=== PATIENT | male | born 1960 | race African-American/Black ===

== ENCOUNTER 2020-02-20 19:40 | Inpatient (IN) | payer OTHER ==
[~2020-02-20] VITALS: Ht 190.5 cm; Wt 113.8 kg
[2020-02-20 19:53] VITALS: BP 180/84
[2020-02-20 20:21] LABS: BE(vivo) 0.3 mmol/L (-2 to +3); HCO3 23.4 mmol/L (22.0-26.0); PCO2 32.3 mmHg (35.0-45.0); pH 7.478 (7.360-7.450); sO2 82.5 % (92.0-98.0)
[2020-02-20 20:23] LABS: PO2 42.7 mmHg (80.0-100.0)
[2020-02-20 20:48] LABS: ABSOLUTE NEUTROPHILS 6.6 thou/uL (1.4-8.2); BASOPHILS 0.6 % (0.0-2.0); EOSINOPHILS 0.5 % (0.0-3.0); HEMATOCRIT 28.7 % (42.0-52.0); HEMOGLOBIN 9.6 gm/dL (14.0-18.0); LYMPHOCYTES 8.4 % (24.0-44.0); MCH 29.2 pg (26.0-34.0); MCHC 33.5 g/dL (28.0-37.0); MCV 87.3 fL (80.0-100.0); MONOCYTES 6.1 % (1.0-8.0); PLATELET COUNT 102 thou/uL (150-400); POLYS 84.4 % (36.0-66.0); RBC 3.28 mil/uL (4.50-6.00); RDW 14.2 % (10.5-14.5); WBC 7.8 thou/uL (4.0-11.0)
[2020-02-20 20:53] LABS: ALBUMIN 2.9 g/dL (3.4-5.0); ANION GAP 11 mmol/L (7-16); BUN 54 mg/dL (7-18); CALCIUM 8.4 mg/dL (8.5-10.1); CHLORIDE 101 mmol/L (98-107); CO2 25 mmol/L (21-32); CREATININE 10.4 mg/dL (0.7-1.3); GLUCOSE 124 mg/dL (74-106); MAGNESIUM 2.1 mg/dL (1.8-2.4); SGOT 20 U/L (15-37); SGPT 9 U/L (30-65); SODIUM 137 mmol/L (136-145); TOTAL BILIRUBIN 0.8 mg/dL (0.2-1.0); TROPONIN-I <0.06 ng/mL (<0.06)
[2020-02-21] VITALS (7 sets, daily range): BP systolic 138–195; BP diastolic 73–99
[2020-02-21] MEDS ORDERED: ACETAMINOPHEN650 M5 PO (01:11)
[2020-02-21] MEDS ORDERED: ASA81BEC PO (01:12)
[2020-02-21] MEDS ORDERED: NORVASC 2.5 MG2.5 M1 PO (01:12)
[2020-02-21] MEDS ORDERED: CALCITRIOL0.5 MCG PO (01:14)
[2020-02-21] MEDS ORDERED: DULCOLAX STOOL100 M1 PO (01:14)
[2020-02-21] MEDS ORDERED: LANTUS SUBQ (01:15)
[2020-02-21] MEDS ORDERED: HYDRALAZINE 2525 MG PO (01:15)
[2020-02-21] MEDS ORDERED: HUMALOG100 UNIT/1 SUBQ (01:16)
[2020-02-21] MEDS ORDERED: PROBIOTIC1 EAC5 PO (01:17)
[2020-02-21] MEDS ORDERED: MELATONIN3 M1 PO (01:18)
[2020-02-21] MEDS ORDERED: LYRICA150 MG PO (01:18)
[2020-02-21] MEDS ORDERED: METOPROLOL SUCC50 MG PO (01:19)
[2020-02-21] MEDS ORDERED: NORCO 10-325 T1 EACH PO (01:21)
[2020-02-21] MEDS ORDERED: PROTONIX40 M1 PO (01:21)
[2020-02-21] MEDS ORDERED: NF PO (01:21)
[2020-02-21] MEDS ORDERED: RENVELA0.8 GM PO (01:22)
[2020-02-21] MEDS ORDERED: PYRIDOXINE HCL25 MG PO (01:22)
[2020-02-21] MEDS ORDERED: B-1100 MG PO (01:23)
[2020-02-21] MEDS ORDERED: SENOKOTXTRA17.2 MG PO (01:23)
[2020-02-21] MEDS ORDERED: VELTASSA16.8 GM PO (01:24)
[2020-02-21 05:37] LABS: ABSOLUTE NEUTROPHILS 9.8 thou/uL (1.4-8.2); BASOPHILS 0.2 % (0.0-2.0); HEMATOCRIT 29.3 % (42.0-52.0); HEMOGLOBIN 9.7 gm/dL (14.0-18.0); LYMPHOCYTES 4.7 % (24.0-44.0); MCH 29.4 pg (26.0-34.0); MONOCYTES 1.5 % (1.0-8.0); PLATELET COUNT 88 thou/uL (150-400); POLYS 93.6 % (36.0-66.0); RDW 14.7 % (10.5-14.5); WBC 11.2 thou/uL (4.0-11.0)
[2020-02-21 05:46] LABS: CALCIUM 8.5 mg/dL (8.5-10.1); CREATININE 11.1 mg/dL (0.7-1.3); MAGNESIUM 2.2 mg/dL (1.8-2.4)
[2020-02-21 06:11] LABS: POTASSIUM 7.7 mmol/L (3.5-5.1)
--- NOTE | 2020-02-21 07:36 | NUR ---
ADMIITED FROM ER UNDER 'S CARE. ADMITTED WITH HYPOXIA,COVID 19 R/O. REC COMPLETED AND SOME HOME MEDS RESTARTED. CRITICAL K REPORTED TO DR.AL LÓPEZ AND MAVIS ABEBE. NEW ORDERS RECIEVED AND CARRIED OUT. HYPERTENSION MANAGED PER MD ORDER. PT WILL BE HAVING HD PER . INITIAL WOUND CARE TO L BKA STUMP OPEN SORE RENDERED AT BEDSIDE AND PICTURE TAKEN. OLD WOUND VAC DRESSING TAKEN DOWN AND WET TO DRY DRESSING APPLIED PER POLICY. TOLERATED WELL. OPTIFLO IS MANAGED PER RT WITH FREQUENT OBSERVATION. NO S/S ACUTE DISTRESS NOTED OR REPORTED AT THIS TIME. CARE TRANSFERRED TO AM RN AT THIS TIME
--- NOTE | 2020-02-21 08:25 | EKG ---
[facility] [place] [address] ELECTROCARDIOGRAM REPORT Name: DAVEY NASH Room #: 362-P ADM IN M.R.#: [id number] Admission: 02/20/20 Attend Phys: Reyes Laughlin MD Discharge: Date of : 64 Report #: [id number] THIS REPORT FOR: cc: FAM - No family physician/PCP FAM - No family physician/PCP Sanket Mukherjee MD [facility] THIS REPORT FOR: //name// [facility] ED Test Date: 2020-02-20 Test Time: 20:01:42 Pat Name: DAVEY NASH Department: Room: 362 Gender: M Table Hand: SELWYN : 1960 Requested By: Francesco Sheffield Order Number: [id number] MD: Sanket Mukherjee Measurements Intervals [place] Rate: 86 P: 29 UT: 207 QRS: 21 QRSD: 94 T: 11 QT: 353 QTc: 423 Interpretive Statements Sinus rhythm Borderline prolonged UT interval No previous ECG available for comparison Electronically Signed On 02-21-2020 8:25:03 CDT by Sanket Mukherjee [email or web address] <ELECTRONICALLY SIGNED> By: Sanket Mukherjee MD, FAC 02/21/2025 00 00 Sanket Mukherjee MD, [facility] /EPI
[2020-02-21 11:03] LABS: BE(vivo) 1.3 mmol/L (-2 to +3); PCO2 35.4 mmHg (35.0-45.0); PO2 112.1 mmHg (80.0-100.0); pH 7.466 (7.360-7.450); sO2 98.4 % (92.0-98.0)
--- NOTE | 2020-02-21 18:44 | NUR ---
patient covid pcr resulted negative this evening. called renee lynne, and MAKAYLA stewart RN to make aware. no orders to d/c isolation as of now. awaiting orders. report given to oncedi SWAN
--- NOTE | 2020-02-21 18:55 | NUR ---
assumed patient care this am at approximately 0700. patient is awake and alert, pleasant, meds and assessment as charted. o2 sat stable on optiflow NC. no s/s of resp distress noted this shift. patient had dialysis today, removed 2L. tolerated well. dressing change completed as ordered. patient complaining of pain to left leg. states norco not effective in pain relief and one dose of fentanyl given, states helped pain more but not completely relieved. tolerating food, having regular BMs.
[2020-02-22 05:34] VITALS: BP 168/83
[2020-02-22 07:33] VITALS: BP 138/47
[2020-02-22 12:20] VITALS: BP 154/37
--- NOTE | 2020-02-22 14:06 | NUR ---
INITIAL ASSESSMENT: MARIA EUGENIA reviewed chart and spoke with nursing and attending physician. Pt was admitted from [facility] due to ESRD. Pt placed in Enhanced Isolation to r/o COVID-19. Pt's first test was negative. Second test is pending. Pt with hx of left BKA and is a dialysis pt. MARIA EUGENIA spoke with pt via phone. Introduced role of SW. Pt is alert/orientated. Pt reports he has been at [facility] for about two weeks for skilled therapy. Pt has a walker and w/c. Pt goes to dialysis T-R-S at the [facility] dialysis clinic. Pt's PCP is Dr. Ag Marques at [facility]. Pt states that his plan is to return to [facility] for therapy. SW faxed clinical info to [facility] for review. Requested therapy evals. MARIA EUGENIA spoke with Carlene at [facility] to provide update. Carlene states that as long as pt remains COVID negative, they will be able to accept pt back to [facility]. MARIA EUGENIA is following to assist as needed with discharge planning.
[2020-02-22 17:08] VITALS: BP 132/46
--- NOTE | 2020-02-22 18:29 | NUR ---
assumed care of pt at 0700. pt aox3-4 in no acute distress. off optiflo - now on 5l nc. reports that fentanyl not effecctive - relayed msg to physician. appears comfortable. dressing changed per order. iv abx infusing per order. clals out appropriately. scheduled for dialysis tomorrow. vitals stable. good progress toward poc goals. wcm.
[2020-02-22 20:43] VITALS: BP 161/55
[2020-02-23 02:19] LABS: URINE BILIRUBIN NEGATIVE (Negative); URINE BLOOD 3+ (Negative); URINE CLARITY CLOUDY; URINE COLOR BROWN; URINE GLUCOSE-RANDOM* NEGATIVE (Negative); URINE KETONES NEGATIVE (Negative); URINE NITRITE-REFLEX NEGATIVE (Negative); URINE PROTEIN (DIPSTICK) 2+ (Negative); URINE UROBILINOGEN 0.2 E.U./dl (0.2-1.0)
[2020-02-23 02:30] LABS: URINE LEUKOCYTES-REFLEX 3+ (Negative)
[2020-02-23 02:42] LABS: SQUAMOUS 0-3 Few /LPF (0-3); URINE RBC >20 Many /HPF (0-2); URINE WBC-REFLEX >25 Many /HPF (0-5)
[2020-02-23 02:43] LABS: BACTERIA-REFLEX >30 Many /HPF (None Seen); CASTS None Seen /LPF (None Seen); CRYSTALS None Seen /LPF (None Seen); MUCUS 0-3 Light strn/LPF (None Seen); YEAST-REFLEX Present (None Seen)
--- NOTE | 2020-02-23 05:06 | NUR ---
PT IS COOPERATIVE AND PLEASANT. HE REMAINS ON OXYGEN, USING THE IV PAIN MEDICATION TO CONTROL PAIN TO LOWER EXTREMITIES. NO DISCHARGE CONCENS VOICED.
[2020-02-23 05:25] VITALS: BP 151/78
[2020-02-23 07:49] VITALS: BP 172/90
[2020-02-23 07:57] LABS: HEMATOCRIT 26.2 % (42.0-52.0); HEMOGLOBIN 8.5 gm/dL (14.0-18.0); MCH 28.9 pg (26.0-34.0); MCHC 32.6 g/dL (28.0-37.0); MCV 88.7 fL (80.0-100.0); RBC 2.95 mil/uL (4.50-6.00); RDW 14.3 % (10.5-14.5); WBC 3.6 thou/uL (4.0-11.0)
[2020-02-23 07:58] LABS: CALCIUM 8.1 mg/dL (8.5-10.1)
[2020-02-23 08:07] LABS: CREATININE 7.2 mg/dL (0.7-1.3)
[2020-02-23 12:29] VITALS: BP 164/81
--- NOTE | 2020-02-23 13:24 | NUR ---
Nutrition: Received call from kitchen staff. Pt requesting second lunch tray. He is on a renal diet. RD reviewed pt's chart. Pt w/ ESRD, on dialysis, also noted to have a nonhealing L BKA incisional wound per provider notes. Based on heightened protein needs for wound/protein losses from dialysis, allowed second protein entree to be sent with vegetables. Avoided allowing any additional carbs as pt also w/ hx of DM and provider note indicating goal to control diabetes, plus BGs currently elevated in the upper 200s lately. Pt is eating 100% of all meals recorded thus far. Anticipate low nutrition risk given excellent appetite and increased protein interest.
--- NOTE | 2020-02-23 15:52 | HC ---
[facility] [place] [address] CONSULTATION Name: DAVEY NASH Room #: 362-P ADM IN M.R.#: [id number] Admission: 02/20/20 Attend Phys: Reyes Laughlin MD Discharge: Date of : 64 Report #: [id number] THIS REPORT FOR: cc: MARGARETH - Brianna family physician/PCP MARGARETH - No family physician/PCP Jesse Roberts MD ~ CC: [facility] physician/PCP Reyes Laughlin DATE OF SERVICE: 02/21/2020 CHIEF COMPLAINT: Surgical wound following left below-knee amputation. HISTORY OF PRESENT ILLNESS: This is a 59-year-old male patient with a history of end-stage renal disease, who has undergone the left below-knee amputation by Dr. Reyna in 08/2019. He has had subsequent breakdown and has had a debridement. He is admitted with possible COVID-19 and I have been asked to see him with regard to wound care. The patient has some pain in his left leg. He has been managed with a wound VAC until recently. PAST MEDICAL HISTORY: Positive for end-stage renal disease, requiring dialysis; hypertension, type 2 diabetes and the left below-knee amputation. ALLERGIES: LISINOPRIL. MEDICATIONS: Amlodipine, aspirin, Zithromax, fentanyl, glucagon, heparin, insulin, Solu-Medrol, pantoprazole, Zosyn, vancomycin. REVIEW OF SYSTEMS: CONSTITUTIONAL: The patient denies fever, chills or weight loss. NEUROLOGICAL: The patient denies focal weakness, numbness or tingling. EYES: The patient denies visual changes, redness or drainage. ENT: The patient denies earache, nasal drainage or sore throat. CARDIOVASCULAR: The patient denies chest pain, palpitations or diaphoresis. PULMONARY: The patient does complain of shortness of breath and some cough. GASTROINTESTINAL: The patient denies nausea, vomiting, diarrhea or abdominal pain. ORTHOPEDIC: The patient has the left below-knee amputation with an open incision line. Other systems in a 14-point review of systems are negative. PHYSICAL EXAMINATION: VITAL SIGNS: Include temperature of 38.1, pulse ____, respiratory rate of 38, blood pressure 180/84. GENERAL: This is a somewhat chronically ill-appearing male patient who appears to be in mild discomfort. [address] [address] CONSULTATION Name: DAVEY NASH Room #: 362-P [facility] IN M.R.#: [id number] Admission: 02/20/20 Attend Phys: Reyes Laughlin MD Discharge: Date of : 64 Report #: [id number] HEENT: Head normocephalic. Nose and throat clear. NECK: Supple. LUNGS: Diminished. HEART: Regular rhythm. ABDOMEN: Soft, bowel sounds present. EXTREMITIES: Lower extremities demonstrate left below-knee amputation. The incision line is open. The base is relatively clean, healthy and granulating. It does not appear to be overtly infected at this time. LABORATORY STUDIES: Sodium 137, potassium 7.0, chloride 101, CO2 of 25, BUN 54, creatinine 10.4, glucose 124. Troponin is less than 0.06. BNP is 20,466. Albumin is 2.9. White blood cell count 7.8 with a hemoglobin of 9.6. CLINICAL IMPRESSION: 1. Left below-knee amputation, status post dehiscence and debridement. 2. End-stage renal disease, requiring hemodialysis. 3. Type 2 diabetes mellitus. 4. Hypertension. 5. Acute hypoxic respiratory failure, suspected COVID-19. RECOMMENDATIONS: At this point in time, we will recommend a topical quarter strength Dakin's moist gauze solution to be applied b.i.d. for now. I think once he is stable otherwise, we could potentially resume his wound VAC with continuation of his home medications and aggressive management of his respiratory failure would be appropriate. He will need ongoing nutritional support. All questions have been answered. I appreciate having been asked to see him in consultation. <ELECTRONICALLY SIGNED> By: Jesse Roberts MD 02/23/20 1552 [id number] 1120 Jesse Roberts MD /nt
[2020-02-23 15:55] VITALS: BP 154/52
--- NOTE | 2020-02-23 16:18 | NUR ---
SW reviewed chart and spoke with nursing and attending physician. Pt remains in Enhanced Isolation to r/o COVID-19. Pt's test is negative. Pt may transfer off of 3W when a bed is available. Pt having dialysis today. Therapy ordered to evaluate pt. SW provided updated to [facility] post acute liaison. Plan is for pt to return to [facility] when medically stable. Per attending, no weekend discharge anticipated. MARIA EUGENIA is following to assist as needed with discharge planning.
[2020-02-23 20:26] VITALS: BP 169/86
[2020-02-24 00:10] VITALS: BP 165/68
[2020-02-24 04:26] VITALS: BP 179/80
--- NOTE | 2020-02-24 05:50 | NUR ---
PT ALERT AND ORIENTED. DENIES CHEST PAIN, REPORTS SOB BUT STATES FEELING BETTER THAT WHAT HE PREVIOUSLY FELT. DENIES NAUSEA OR VOMITING. SR ON THE MONITOR. PT IS ANURIC. LEFT BKA STAMP PAIN ALLEVIATED WITH PRN FENTANYL. DENIES ANY OTHER CONCERNS. WILL CONTINUE TO MONITOR AND FOLLOW POC.
[2020-02-24 08:33] VITALS: BP 190/59
--- NOTE | 2020-02-24 12:45 | NUR ---
CHANGED OUT LINENS NOW, UP TO CHAIR. PT. TRANFERRED EARLIER VERY WELL WITH WALKER AND SELF PIVOTING. PT. GIVEN FENTANYL FOR LIMB. DRESSING CHANGE DISCOMFORT PRIOR, RESPONDED WELL TO SUCH. WOUND VAC IS BEING ARANGED FOR HIS STUMP BY BIOPHYSICS PROFESSOR AND ER FACILITY. WATCHING TV AND CALL LIGHT WITHIN REACH.
--- NOTE | 2020-02-24 15:08 | NUR ---
MARIA EUGENIA reviewed chart and spoke with nursing and attending physician. Pt was transferred to from 3W and is progressing towards goals for discharge. Pt may be ready for discharge back to [facility] over the weekend. MARIA EUGENIA discussed HBO treatments with wound care physicians. Pt would need to come to [facility] for outpt HBO treatments Thu-Thu. MARIA EUGENIA discussed with [facility] post-acute liaison who states they will follow up with [facility] on Thursday, due to the business office mgr being out of the office. [facility] will need to find out the cost of each visit. MARIA EUGENIA updated wound care physician. MARIA EUGENIA met with pt at bedside to discuss discharge plan. Pt is agreeable with returning to [facility]. [facility] is able to accept pt back over the weekend. Finalized discharge orders/summary will need to be faxed to [facility]. [facility] liaison will coordinate discharge. Chart copy needed. Nursing to call report. MARIA EUGENIA is available to assist as needed with discharge planning. [facility]-- Liaison (Brittany): [phone]
--- NOTE | 2020-02-24 16:25 | NUR ---
PT. WATCHING TV, DENIES ANY DISCOMFORT AT THIS TIME. IV FLUSHED UPPER RIGHT ARM BICEP. PENDING TRANSFER OVER THE WEEKEND, NOT TODAY. ASKED FOR DOUBLE PORTIONS BUT EXPLAINED TO HIM THAT BEING ON A RENAL DIET THEY CANNOT PROVIDE SUCH AT THIS TIME. CRACKERS GIVEN AND YOUGART.
[2020-02-24 17:49] VITALS: BP 149/46
[2020-02-24 19:20] VITALS: BP 148/65
[2020-02-25] VITALS: BP 176/67
--- NOTE | 2020-02-25 01:24 | NUR ---
2114 KEELY PLANT TECHNICIAN/CONTROL ROOM OPERATOR NOTIFIED OF BLOOD SUGAR 5OO PER ACCUCHECK. LAB UNABLE TO VERIFY PER BLOOD DRAW TRIED 3X. ADDITIONAL INSULIN ORDERED. 0000 BLOOD SUGAR 466 AND PLANT TECHNICIAN/CONTROL ROOM OPERATOR NOTIFIED. NO ADDITIONAL ORDERS GIVEN.
[2020-02-25 04:00] VITALS: BP 167/58
--- NOTE | 2020-02-25 07:42 | NUR ---
SLEPT MOST OF SHIFT. WORKING ON GOALS AND PLAN OF CARE FOR NOC. IN DIALYSIS AT THIS TIME. DENIES COMPLAINTS OF PAIN SINCE BEDTIME. WORKING ON GOALS AND PLAN OF CARE FOR NOC. PROGRESSING TOWARDS GOALS FOR REHAB. CONTINUE TO ASSES BLOOD PRESSURE AND BLOOD SUGARS.
[2020-02-25] MEDS ORDERED: AUGMENTIN 500-1 EACH PO (10:09)
[2020-02-25] MEDS ORDERED: PREDNISONE 10 M10 M1 PO (10:12)
[2020-02-25 13:19] VITALS: BP 168/87
--- NOTE | 2020-02-25 13:54 | NUR ---
ASSESSMENT CHARTED. PT ALERT AND ORIENTED. HAD DIALYSIS THIS AM. ORDERS GIVEN TO DISCHARGE PT TO SNF. WOUND VAC DISCONTINUED. PT LEFT THE FACILITY WITH ALL HIS BELONGINGS.
== END 2020-02-25 13:59 | DRG 871 ==
LOC: ER 19:40 → 3W 21:16 → EROBS 21:16 → 3W 02-21 00:31 → 2N 02-23 18:48
PROVIDERS: Emergency Medicine; Hospitalist; Nurse Practitioner Family; Pediatrics; ADMIT Internal Medicine; ATTEND Internal Medicine
PROC: 5A1D70Z Performance of Urinary Filtration, Intermittent, Less than 6 Hours Per Day (ICD-10-PCS; principal; 2020-02-21)
PROC: 5A1D70Z Performance of Urinary Filtration, Intermittent, Less than 6 Hours Per Day (ICD-10-PCS; 2020-02-23)
PROC: 5A1D70Z Performance of Urinary Filtration, Intermittent, Less than 6 Hours Per Day (ICD-10-PCS; 2020-02-25)
DX: A41.9 Sepsis, unspecified organism (principal); J96.01 Acute respiratory failure with hypoxia; N18.6 End stage renal disease; J18.9 Pneumonia, unspecified organism; E44.0 Moderate protein-calorie malnutrition; I12.0 Hypertensive chronic kidney disease with stage 5 chronic kidney disease or end stage renal disease; N39.0 Urinary tract infection, site not specified; L97.929 Non-pressure chronic ulcer of unspecified part of left lower leg with unspecified severity; E11.22 Type 2 diabetes mellitus with diabetic chronic kidney disease; E11.42 Type 2 diabetes mellitus with diabetic polyneuropathy; R53.81 Other malaise; T87.9 Unspecified complications of amputation stump; Y83.8 Other surgical procedures as the cause of abnormal reaction of the patient, or of later complication, without mention of misadventure at the time of the procedure; E87.5 Hyperkalemia; D69.6 Thrombocytopenia, unspecified; Z20.828 Contact with and (suspected) exposure to other viral communicable diseases; Z99.2 Dependence on renal dialysis; Z88.8 Allergy status to other drugs, medicaments and biological substances; Z79.82 Long term (current) use of aspirin; Z79.899 Other long term (current) drug therapy; Z79.4 Long term (current) use of insulin; Z89.512 Acquired absence of left leg below knee; Z68.31 Body mass index [BMI] 31.0-31.9, adult
CPT/HCPCS: 10081; 10879; 32100